=== PATIENT | male | born 1960 | race Caucasian/White ===

== ENCOUNTER → 2025-07-11 07:24 | Outpatient (REF) | payer OTHER, SELFPAY | LOC: RAD 07:24 | PROVIDERS: ATTENDING PHYSICIAN Internal Medicine Cardiovascular Disease; FAMILY PHYSICIAN Internal Medicine | DX: H34.9 Unspecified retinal vascular occlusion (principal) | CPT/HCPCS: 93880 ==

== ENCOUNTER → 2025-07-25 08:10 | Outpatient (REF) | payer OTHER, SELFPAY | LOC: RCS 08:10 | PROVIDERS: ATTENDING PHYSICIAN Internal Medicine Cardiovascular Disease; FAMILY PHYSICIAN Internal Medicine | DX: R06.02 Shortness of breath (principal) | CPT/HCPCS: 93017; 93350 ==

== ENCOUNTER → 2025-07-26 14:00 | Outpatient (REF) | payer OTHER, SELFPAY | LOC: RCS 14:00 | PROVIDERS: ATTENDING PHYSICIAN Internal Medicine Cardiovascular Disease; FAMILY PHYSICIAN Internal Medicine | DX: H34.9 Unspecified retinal vascular occlusion (principal) | CPT/HCPCS: 93306 ==